=== PATIENT | male | born 1975 | race Caucasian/White ===

== ENCOUNTER 2024-07-03 18:32 | Emergency (ER) | payer SELFPAY ==
[2024-07-03] MEDS ORDERED: cefTRIAXone (ROCEPHIN) 1 GM VIAL ONE (20:37)
== END 2024-07-03 21:01 | disposition home or self-care (01) ==
LOC: CSHERS 18:32
DX: J02.9 Acute pharyngitis, unspecified (principal); F17.290 Nicotine dependence, other tobacco product, uncomplicated
CPT/HCPCS: 96372; 99283; J0696